=== PATIENT | female | born 1955 | race African-American/Black ===

== ENCOUNTER 2017-11-14 21:05 | Emergency (ER) | payer MEDICARE, OTHER ==
[~2017-11-14] VITALS: Ht 172.7 cm; Wt 86.2 kg
[~2017-11-14 21:05] MED LIST: ASPIRIN81 MG ORAL; CYCLOBENZAPRINE10 MG ORAL; IBUPROFEN800 MG ORAL; NORVASC10 MG ORAL; PERCOCET 5-3251 EACH ORAL
[2017-11-14] MEDS ORDERED: ASPIRIN EC325 MG ORAL (21:22)
[2017-11-14] MEDS ORDERED: ATORVASTATIN CA10 MG ORAL (21:22)
--- NOTE | 2017-11-14 21:36 | Emergency Room Report ---
History of Present Illness General Chief Complaint: Edema Source: Patient Present Illness HPI Patient present with complaints of swelling to both of her legs Ongoing for the past one month Patient reports that his physician had requested decreasing salt intake and elevating the extremities However the swelling has continued She now has some increased discomfort with walking Also complains of swelling and discomfort to both of her hands Reports that she has history of arthritis in her fingers appear more swollen Denies any chest pain however she reports she has a history of cardiomegaly Denies any vomiting or diarrhea patient also complains of a headache with pressure behind her eyes Allergies: Coded Allergies: PENICILLINS (Unverified Allergy, Severe, 11/21/13) TRAMADOL (Unverified Adverse Reaction, Severe, 11/21/13) nausea CODEINE (Unverified Adverse Reaction, Unknown, 11/21/13) nausea Patient History Past Medical History: see triage record Pertinent Family History: none Reviewed Nursing Documentation: PMH: Agreed; PSxH: Agreed Nursing Documentation-PMH Hx Cardiac Problems: Yes - CARDIOMEGALY Hx Hypertension: Yes - ARTHRITIS Hx Pacemaker: No Hx Asthma: No Hx COPD: No Hx Diabetes: No Hx Cancer: No Hx Gastrointestinal Problems: No Hx Dialysis: No Hx Neurological Problems: No Hx Cerebrovascular Accident: No Hx Seizures: No Review of Systems All Other Systems: negative except mentioned in HPI Physical Exam Vital Signs Date Time Temp Pulse Resp B/P (MAP) Pulse Ox O2 Delivery O2 Flow Rate FiO2 11/14/17 21:11 98.2 66 18 166/86 97 Room Air 98.2 Sp02 EP Interpretation: reviewed, normal General Appearance: well appearing, no apparent distress Head: normocephalic, atraumatic Eyes: bilateral eye PERRL, bilateral eye EOMI ENT: hearing grossly normal, normal pharynx, TMs + canals normal, uvula midline Neck: full range of motion, supple, no meningismus, no bony tend Respiratory: lungs clear, normal breath sounds, no rhonchi, no respiratory distress, no retraction, no accessory muscle use Cardiovascular #1: normal peripheral pulses, regular rate, rhythm, no gallop, no JVD, no murmur Gastrointestinal: normal bowel sounds, non tender, soft, no mass, no organomegaly, non-distended, no guarding, no hernia, no pulsatile mass, no rebound Genitourinary: no CVA tenderness Musculoskeletal: other - Some inflammation evident and bilateral hands involving the digits. 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, motor strength/ tone normal, sensory intact Psychiatric: mood/affect normal Skin: warm/dry, other - As above Lymphatic: normal inspection, no adenopathy Medical Decision Making Diagnostic Impression: Primary Impression: Elevated troponin I level Additional Impression: Edema ER Course Patient is a fairly complex patient with multiple differential to consideration including but not limited to cardiac cardiopulmonary and vascular emergencies Patient's troponin level is elevated Given the edema in the lower extremities this is concerning for acute cardiac injury Patient requires admission with further reevaluation Also complaining some discomfort in the lower leg region with rule out of DVT with ultrasound However on further discussion patient reports that she does not want to stay in the hospital Patient is aware that the abnormal findings are critical and concerning to come to worsening symptoms and possible And leading AGAINST MEDICAL ADVICE Labs Test 11/14/17 21:48 White Blood Count 4.5 K/UL (4.8-10.8) Red Blood Count 5.29 M/UL (4.20-5.40) Hemoglobin 13.9 G/DL (12.0-16.0) Hematocrit 44.0 % (37.0-47.0) Mean Corpuscular Volume 83 FL (80-99) Mean Corpuscular Hemoglobin 26.3 PG (27.0-31.0) Mean Corpuscular Hemoglobin Concent 31.6 G/DL (32.0-36.0) Red Cell Distribution Width 12.6 % (11.6-14.8) Platelet Count 165 K/UL (150-450) Mean Platelet Volume 11.7 FL (6.5-10.1) Neutrophils (%) (Auto) 47.0 % (45.0-75.0) Lymphocytes (%) (Auto) 41.9 % (20.0-45.0) Monocytes (%) (Auto) 6.8 % (1.0-10.0) Eosinophils (%) (Auto) 2.9 % (0.0-3.0) Basophils (%) (Auto) 1.3 % (0.0-2.0) Erythrocyte Sedimentation Rate 22 MM/HR (0-30) Sodium Level 144 MMOL/L (136-145) Potassium Level 3.7 MMOL/L (3.5-5.1) Chloride Level 106 MMOL/L (98-107) Carbon Dioxide Level 33 MMOL/L (21-32) Anion Gap 5 mmol/L (5-15) Blood Urea Nitrogen 14 mg/dL (7-18) Creatinine 1.0 MG/DL (0.55-1.30) Estimat Glomerular Filtration Rate > 60 mL/min (>60) Glucose Level 99 MG/DL (74-106) Calcium Level 9.3 MG/DL (8.5-10.1) Total Bilirubin 0.4 MG/DL (0.2-1.0) Aspartate Amino Transf (AST/SGOT) 28 U/L (15-37) Alanine Aminotransferase (ALT/SGPT) 28 U/L (12-78) Alkaline Phosphatase 134 U/L (46-116) Total Creatine Kinase 184 U/L (26-308) Creatine Kinase MB 2.0 NG/ML (0.0-3.6) Creatine Kinase MB Relative Index 1.0 Troponin I 0.075 ng/mL (0.000-0.056) Pro-B-Type Natriuretic Peptide 112 pg/mL (0-125) Total Protein 7.9 G/DL (6.4-8.2) Albumin 3.9 G/DL (3.4-5.0) Globulin 4.0 g/dL Albumin/Globulin Ratio 1.0 (1.0-2.7) EKG Diagnostic Results Rate: normal Rhythm: NSR ST Segments: no acute changes Rhythm Strip Diag. Results EP Interpretation: yes Rate: 66 Rhythm: NSR, no PVC's, no ectopy Chest X-Ray Diagnostic Results Chest X-Ray Diagnostic Results : Chest X-Ray Ordered: Yes # of Views/Limited/Complete: 1 View Indication: Chest Pain EP Interpretation: Yes Interpretation: no consolidation, no effusion, no pneumothorax Impression: No acute disease Electronically Signed by: Tayo Hicks DO Last Vital Signs Date Time Temp Pulse Resp B/P (MAP) Pulse Ox O2 Delivery O2 Flow Rate FiO2 11/14/17 21:11 98.2 66 18 166/86 97 Room Air 98.2 Status: improved Disposition: AGAINST MEDICAL ADVICE Condition: Improved Scripts Furosemide* (LASIX*) 20 Mg Tablet 20 MG ORAL BID, #10 TAB Prov: Tayo Hicks DO 11/15/17 Tayo Hicks DO Nov 14, 2017 21:36
[2017-11-14] MEDS ORDERED: Morphine Sulfate 4mg/ml Inj (IV USE ONLY) IVP ONE (21:45)
[2017-11-14 22:07] LABS: BASOPHILS % (AUTO) 1.3 % (0.0-2.0); EOSINOPHILS % (AUTO) 2.9 % (0.0-3.0); HEMOGLOBIN 13.9 G/DL (12.0-16.0); LYMPHOCYTES % (AUTO) 41.9 % (20.0-45.0); MEAN CORPUSCULAR VOLUME 83 FL (80-99); MONOCYTES % (AUTO) 6.8 % (1.0-10.0); PLATELET COUNT 165 K/UL (150-450); RED BLOOD COUNT 5.29 M/UL (4.20-5.40); RED CELL DISTRIBUTION WIDTH 12.6 % (11.6-14.8); WHITE BLOOD COUNT 4.5 K/UL (4.8-10.8)
[2017-11-14 22:20] VITALS: BP 156/75
[2017-11-14 22:23] LABS: ANION GAP 5 mmol/L (5-15); BLOOD UREA NITROGEN 14 mg/dL (7-18); CALCIUM 9.3 MG/DL (8.5-10.1); CARBON DIOXIDE 33 MMOL/L (21-32); CHLORIDE 106 MMOL/L (98-107); POTASSIUM 3.7 MMOL/L (3.5-5.1); SODIUM 144 MMOL/L (136-145)
[2017-11-14 22:38] LABS: ALANINE AMINOTRANSFERASE 28 U/L (12-78); ALBUMIN 3.9 G/DL (3.4-5.0); ALKALINE PHOSPHATASE 134 U/L (46-116); ASPARTATE AMINO TRANSFERASE 28 U/L (15-37); BILIRUBIN,TOTAL 0.4 MG/DL (0.2-1.0); CREATINE KINASE 184 U/L (26-308)
[2017-11-15] MEDS ORDERED: FUROSEMIDE20 M1 ORAL (00:05)
[2017-11-15 00:18] VITALS: BP 156/75
--- NOTE | 2017-11-15 09:46 | Diagnostic Imaging Report ---
Indication: Chest pain Technique: One view of the chest Comparison: 07/16/2009 Findings: Patient is rotated to the right. Lungs and pleural spaces are clear. Heart size is normal. No significant interim change Impression: No acute process
== END 2017-11-15 00:19 | disposition left against medical advice (07) ==
LOC: EMR 21:56 → EDBEDREQ 23:49 → EMR 11-15 00:19
DX: R60.9 Edema, unspecified (principal); R79.89 Other specified abnormal findings of blood chemistry
CPT/HCPCS: 36415; 71045; 80053; 82550; 82553; 83880; 84484; 85025; 85651; 93005; 99283